=== PATIENT | male | born 1940 | race African-American/Black ===

== ENCOUNTER 2016-06-21 02:40 | Emergency (ER) | payer OTHER, MEDICAID ==
[~2016-06-21] VITALS: Ht 154.9 cm; Wt 90.7 kg
[2016-06-21 02:53] VITALS: BP_SYST 120; BP_SYST 152; BP_DIAS 91
--- NOTE | 2016-06-21 03:20 | NUR ---
BIBA TO ER BED 4
--- NOTE | 2016-06-21 03:23 | NUR ---
PT. BIBA TO BED 4
--- NOTE | 2016-06-21 03:24 | NUR ---
75Y/M PT. BIBA TO ED WITH C/O RT. FEMORAL HD CATHETER DISLODGES. HX. ESRD ON HD, DM, AFIB. AAOX4, UNABLE TO AMBULATE, BED BOUND. RESPIRATIONS ROOM AIR, EVEN AND UNLABORED. RT. FEMORAL HD CATHETER DISLODGE, NO ACTIVE BLEEDING, TIP OF CATHETER INTACT. NO BRUISE NOR HEMATOMA NOTED. COVER WITH GAUZE AND APPLIED PRESSURE. DR. DOSS ASSESS PT AT BEDSIDE. VSS, NO S/SX OF DISTRESS AT THIS TIME.
--- NOTE | 2016-06-21 03:55 | NUR ---
Madelin villanueva in ED - 06/21/16 at 0355 by MEDDICKSON BIBA TO ER BED 4
--- NOTE | 2016-06-21 07:03 | NUR ---
Patient discharged with v/s stable. Written and verbal after care instructions given and explained. Patient verbalized understanding. All questions addressed prior to discharge. Advised to follow up with PMD.
--- NOTE | 2016-06-21 07:50 | NUR ---
PT SLEEPING;NO ACUTE DISTRESS NOTED AT THIS TIME;WILL CONTIUE TO MONITOR PT.
--- NOTE | 2016-06-21 08:10 | NUR ---
PLACED ALL MONITORS;CAN NOT GET THE RIGHT BP MEASUREMENT 3X; USED THE VS MACHINE;BP 105/71.
--- NOTE | 2016-06-21 09:24 | NUR ---
PT EATING HIS BREAKFAST.
[2016-06-21 10:01] VITALS: BP 112/74
== END 2016-06-21 10:00 | disposition home or self-care (01) ==
LOC: MED 02:40
DX: Z49.01 Encounter for fitting and adjustment of extracorporeal dialysis catheter (principal)
CPT/HCPCS: 82948; 99283